=== PATIENT | male | born 1965 | race Caucasian/White ===

== ENCOUNTER → 2016-07-30 | Outpatient (CLI) | payer BC ==
--- NOTE | 2016-07-30 16:44 | Diagnostic Imaging Report ---
INDICATION: Bilateral testicular pain for one year, recently worsening, left greater than right. COMPARISON: None. DISCUSSION: Sonographic evaluation of the scrotum was performed. The testicles appear normal and symmetric in echotexture and size bilaterally with normal color Doppler blood flow. The right testicle measures 4.6 x 2.2 x 3.1 cm. The left testicle measures 4.9 x 2.0 x 3.3 cm. The epididymides appear normal. No varicocele or hydrocele. The scrotal wall is unremarkable. IMPRESSION: 1. Normal sonographic appearance of the scrotum. Dictated by: Dictated on workstation # [id number]
== END ==
LOC: RAD 15:23
PROVIDERS: ATTEND Nurse Practitioner Family
DX: N50.9 Disorder of male genital organs, unspecified (principal)
CPT/HCPCS: 76870